=== PATIENT | male | born 1965 | race Caucasian/White ===

== ENCOUNTER → 2016-03-25 | Outpatient (CLI) | payer OTHER ==
[~2016-03-25] MED LIST: NO HOME MEDICATIONS; PERCOCET 5/321 UDTAB PO; PHENERGAN 25 TA25 MG PO; ZOFRAN 4MG T4 MG/TAB PO
== END ==
LOC: BHSO 16:16
DX: F41.1 Generalized anxiety disorder (principal)

== ENCOUNTER → 2016-09-10 | Outpatient (CLI) | payer OTHER | LOC: BHSO 15:28 | DX: F41.1 Generalized anxiety disorder (principal) ==

== ENCOUNTER → 2016-11-14 | Outpatient (CLI) | payer OTHER | LOC: COL.LAB 06:54 | DX: Z01.89 Encounter for other specified special examinations (principal) ==

== ENCOUNTER → 2017-03-18 | Outpatient (CLI) | payer OTHER | LOC: BHSO 15:45 | DX: F90.0 Attention-deficit hyperactivity disorder, predominantly inattentive type (principal) | CPT/HCPCS: G0463 ==

== ENCOUNTER → 2017-10-09 | Outpatient (CLI) | payer OTHER | LOC: BHSO 15:33 | DX: F90.0 Attention-deficit hyperactivity disorder, predominantly inattentive type (principal) | CPT/HCPCS: G0463 ==

== ENCOUNTER → 2018-04-07 | Outpatient (CLI) | payer OTHER ==
[~2018-04-07] MED LIST changes: +ADDERALL20 MG PO; +MULTI VITAMINS1 TAB PO; +NTHROIDNT1/2 PO; +VITAMIN D 400400 IU PO
== END ==
LOC: BHSO 15:54
DX: F90.0 Attention-deficit hyperactivity disorder, predominantly inattentive type (principal)
CPT/HCPCS: G0463

== ENCOUNTER → 2018-10-23 | Outpatient (CLI) | payer OTHER | LOC: BHSO 07:50 | DX: F90.0 Attention-deficit hyperactivity disorder, predominantly inattentive type (principal) | CPT/HCPCS: G0463 ==

== ENCOUNTER → 2019-04-20 | Outpatient (CLI) | payer OTHER | LOC: BHSO 15:45 | DX: F90.0 Attention-deficit hyperactivity disorder, predominantly inattentive type (principal) | CPT/HCPCS: G0463 ==

== ENCOUNTER → 2019-10-28 | Outpatient (CLI) | payer OTHER | LOC: BHSO 08:29 | DX: F90.0 Attention-deficit hyperactivity disorder, predominantly inattentive type (principal) | CPT/HCPCS: G0463 ==